=== PATIENT | male | born 1945 | race Caucasian/White ===

== ENCOUNTER 2024-11-24 14:26 | Emergency (ER) | payer MEDICARE, SELFPAY ==
[2024-11-24 14:30] VITALS: BP 169/78; PULSE 58; RESP 17; TEMP 36.7; O2SAT 96; BMI 27.4
[2024-11-24 15:17] LABS: INR 1.6 (0.9-1.3); Prothrombin Time 18.0 SECONDS (9.4-12.5)
[2024-11-24 15:19] LABS: PTT Partial Thromboplastin Tim 33 SECONDS (25.1-36.5)
--- NOTE | 2024-11-24 17:27 | PC.NURSE ---
Around [id number] patient told registration that he would be calling medical records tomorrow for his lab results and was visualized leaving. Had attempted to call patient at 1700 when this was discovered.
== END 2024-11-24 17:29 | disposition left against medical advice (07) ==
PROVIDERS: Student in an Organized Health Care Education/Training Program; Emergency Provider Emergency Medicine
DX: Z79.01 Long term (current) use of anticoagulants (principal)
CPT/HCPCS: 36415; 85610; 85730; 99281